=== PATIENT | female | born 1955 | race Caucasian/White ===

== ENCOUNTER 2019-04-15 11:30 | Outpatient (RCR) | payer OTHER, SELFPAY | END 2019-04-15 23:59 | disposition home or self-care (01) | LOC: ANHAUDIO 11:30 | PROVIDERS: PCP Internal Medicine; Visit Provider Internal Medicine | DX: Z46.1 Encounter for fitting and adjustment of hearing aid (principal) | CPT/HCPCS: 99199; V5241; V5256 ==

== ENCOUNTER 2020-03-10 13:40 | Outpatient (RCR) | payer OTHER, SELFPAY | END 2020-03-10 23:59 | disposition home or self-care (01) | LOC: ANHAUDIO 13:40 | PROVIDERS: PCP Internal Medicine; Referring Provider Internal Medicine; Visit Provider Internal Medicine | DX: Z46.1 Encounter for fitting and adjustment of hearing aid (principal) | CPT/HCPCS: 99199; V5014 ==

== ENCOUNTER 2021-04-13 12:47 | Outpatient (RCR) | payer OTHER, SELFPAY | END 2021-04-13 23:59 | disposition home or self-care (01) | LOC: ANHAUDIO 12:47 | PROVIDERS: PCP Family Medicine; Visit Provider Family Medicine | DX: Z46.1 Encounter for fitting and adjustment of hearing aid (principal) | CPT/HCPCS: 92592 ==

== ENCOUNTER 2022-04-04 12:55 | Outpatient (CLI) | payer OTHER, SELFPAY ==
--- NOTE | ~2022-04-04 | XR_ITS ---
EXAMINATION: XR chest 2V 04/04/2022 13:13 INDICATION: Weight loss. COPD exacerbation. PROCEDURE: PA and lateral views of the chest COMPARISON: 04/24/2017 FINDINGS: The lungs are clear. The cardiomediastinal silhouette is within normal limits. There are no pleural effusions. There is no pneumothorax suspected. The lungs are hyperinflated which is cons istent with, but not diagnostic of chronic obstructive pulmonary disease. There is an intramedullary inge in the left humerus with proximal interlocking screws. IMPRESSION: 1: NO ACUTE CARDIOPULMONARY DISEASE. Reviewed, dictated and finalized at location L. [employer]ICIAN
== END 2022-04-04 12:56 | disposition home or self-care (01) ==
LOC: ANHIMG 13:00
PROVIDERS: PCP Family Medicine
DX: J44.1 Chronic obstructive pulmonary disease with (acute) exacerbation (principal)
CPT/HCPCS: 71046

== ENCOUNTER 2022-05-30 13:00 | Outpatient (RCR) | payer OTHER, SELFPAY | END 2022-05-30 23:59 | disposition home or self-care (01) | LOC: ANHAUDIO 13:00 | PROVIDERS: PCP Family Medicine; Visit Provider Family Medicine | DX: Z46.1 Encounter for fitting and adjustment of hearing aid (principal) | CPT/HCPCS: 99199; V5014 ==

== ENCOUNTER 2022-08-06 14:08 | Outpatient (CLI) | payer OTHER, SELFPAY ==
[2022-08-06 16:55] LABS: Appearance Urine Clear (Clear); Bacteria Urine None Seen /hpf; Bilirubin Urine Negative (Negative); Blood Urine Negative (Negative); Color Urine Yellow (Yellow); Glucose Urine UA Negative (Negative); Ketones Urine Negative (Negative); Leukocyte Esterase Ur Trace LEU/UL (NEGATIVE); Nitrate Urine Negative (Negative); Non Pathogenic Casts 0-2; Protein Urine Trace mg/dL (Negative); RBC Urine 0-2 /hpf (0-2); Specific Grav Ur 1.023 (1.001-1.035); Squamous Epithelial Cell Urine Moderate /hpf (Few); pH Urine 6.5 (5.0-9.0)
[2022-08-06 16:56] LABS: Add Urine Microscopic? YES
[2022-08-06 17:01] LABS: Basophils Absolute Auto 0.1 K/mm3 (0.0-0.1); Basophils Percent Auto 1.4 % (0.2-1.2); Eosinophils Absolute Auto 0.1 K/mm3 (0-0.3); Eosinophils Percent Auto 1.3 % (0-4.4); Hematocrit 40.8 % (37.0-47.0); Hemoglobin 12.9 g/dL (12.0-15.0); Immature Granulocyte Absolute 0.01 K/mm3 (0.00-0.031); Immature Granulocyte Percent A 0.1 % (0-0.5); Lymphocytes Absolute Auto 1.84 K/mm3 (0.9-3.2); Mean Corpuscular HGB Conc 31.6 g/dl (32-36); Mean Corpuscular Hemoglobin 30.1 pg (26-34); Mean Corpuscular Volume 95.1 fl (80-100); Mean Platelet Volume 11.7 fl (7.4-10.4); Monocytes Absolute Auto 0.5 K/mm3 (0.1-0.6); Monocytes Percent Auto 5.7 % (2.6-8.5); Neutrophils Absolute Auto 6.2 K/mm3 (1.3-6.7); Neutrophils Percent Auto 70.5 % (45.5-73.1); Platelet Count Result 260 k/mm3 (150-375); Red Blood Count 4.29 M/mm3 (4.2-5.4); Red Cell Distribution Width 13.3 % (11.5-14.5); White Blood Count 8.8 K/mm3 (4.5-10.0)
[2022-08-06 17:37] LABS: Erythrocyte Sedimentation Rate 13 mm/hr (0-20)
[2022-08-06 18:03] LABS: Alanine Aminotransferase 15 U/L (6-35); Albumin Level 4.1 g/dL (3.5-5.1); Alkaline Phosphatase 64 U/L (38-126); Anion Gap 4 mmol/L (8-16); Aspartate Amino Transferase 29 U/L (14-36); Bilirubin,Total 0.5 mg/dL (0.2-1.3); Blood Urea Nitrogen 19 mg/dL (7-17); CRP < 0.5 mg/dL (<1.0); Calcium 9.5 mg/dL (8.4-10.2); Carbon Dioxide 26 mmol/L (22-30); Chloride 113 mmol/L (98-107); Estimated Glomerular Filt Rate 56; Glucose 99 mg/dL (65-110); Sodium 143 mmol/L (137-145)
[2022-08-06 18:45] LABS: Free T4 Free Thyroxine 1.09 ng/mL (0.78-2.19)
[2022-08-06 19:03] LABS: Folic Acid 8.9 ng/mL (2.76->20)
[2022-08-06 20:27] LABS: Hemoglobin A1C 5.3 % (<5.7)
== END 2022-08-06 14:09 | disposition home or self-care (01) ==
LOC: ANHGOSHLAB 14:09
PROVIDERS: PCP Internal Medicine; Visit Provider Internal Medicine
DX: J44.9 Chronic obstructive pulmonary disease, unspecified (principal); R63.4 Abnormal weight loss; R73.9 Hyperglycemia, unspecified; R91.1 Solitary pulmonary nodule; Z72.0 Tobacco use
CPT/HCPCS: 36415; 80053; 81001; 82607; 82746; 83036; 84439; 84443; 85025; 85652; 86140

== ENCOUNTER 2023-07-04 11:13 | Emergency (ER) | payer OTHER, SELFPAY ==
--- NOTE | ~2023-07-04 | XR_ITS ---
Clinical Indication: Cough PA and lateral views of the chest: Comparison: 04/04/2022 Findings: The lungs are clear, without evidence of focal consolidation or pleural effusion. Probable COPD. Cardiomediastinal silhouette is within normal limits. Bones and soft tissues are unremarkable. Impression: Clear lungs. Probable COPD. Reviewed, dictated and finalized at location . Impression: Clear lungs. Probable COPD.
[2023-07-04 11:25] VITALS: BP 127/63; PULSE 74; RESP 18; TEMP 36.7; O2SAT 96
--- NOTE | 2023-07-04 11:26 | ED.URI ---
HPI - URI/Sore Throat General Chief Complaint: Upper Respiratory Infection Stated Complaint: Cough/Shortness of Breath Time Seen by Provider: 07/04/23 11:34 Source: patient Mode of arrival: ambulatory Limitations: no limitations History of Present Illness HPI Narrative: 68 y/o female accompanied by dtr presented for c/o productive cough x5 days. Endorses hearing gurgling sounds with breathing, fatigue at onset, temp up to 99. Sates O2 sat 90% 3 days ago, but has improved. Cough is productive of green sputum. Taking Robitussin, mucinex, cetirizine, and albuterol nebs. Denies cp, palpitations, n/v/d/f/c. Smokes 1ppd x40 years. Does not take inhalers. Related Data Home Medications Medication Instructions Recorded Confirmed cetirizine 10 mg tablet 10 mg PO DAILY PRN 06/15/20 03/24/23 gabapentin 100 mg capsule 100 mg PO TID PRN 08/06/22 03/24/23 ibuprofen 600 mg tablet 600 mg PO TID 08/06/22 02/26/23 pantoprazole 40 mg tablet,delayed 40 mg PO QAM 08/06/22 03/24/23 release albuterol sulfate 90 mcg/actuation inhalation 12/17/22 03/24/23 aerosol inhaler budesonide-formoterol HFA 160 inhalation 12/17/22 03/24/23 mcg-4.5 mcg/actuation aerosol inhaler (Symbicort) fluticasone furoate 200 inhalation 07/04/23 mcg-vilanterol 25 mcg/dose inhalation powder (Breo Ellipta) hydrocodone bitartrate 40 mg mg PO 07/04/23 tablet,crush resist,extended rel. 24hr (Hysingla ER) Allergies Allergy/AdvReac Type Severity Reaction Status Date / Time MAK Inhibitors Allergy Unknown unknown Verified 07/04/23 11:17 codeine Allergy Unknown unknown Verified 07/04/23 11:17 penicillin G Allergy Unknown unknown Verified 07/04/23 11:17 Penicillins Allergy Unknown unknown Verified 07/04/23 11:17 morphine AdvReac Intermediate Hallucinati Verified 07/04/23 11:17 ng steroid Allergy Severe Swelling Uncoded 07/04/23 11:17 DIURETICS AdvReac Unknown SWELLING Uncoded 07/04/23 11:17 AT [facility]/ PAIN AT [facility] Review of Systems Review of Systems: CONSTITUTIONAL: Denies fever, chills, or sweats. EYES: Denies visual changes, redness, or discharge. ENT: Denies rhinorrhea, congestion, sore throat, or otalgia. CARDIOVASCULAR: Denies chest pain, palpitations, or edema. RESPIRATORY: Reports cough, sob, wheezing. GASTROINTESTINAL: Denies abdominal pain, nausea, vomiting, or diarrhea. SKIN: Denies rash, itching, or wounds. MUSCULOSKELETAL: Denies myalgia. NEUROLOGIC: Denies headache, numbness, tingling, or weakness. All systems reviewed & are unremarkable except as noted in HPI and below PMFSH Past Medical History Medical History Allergies Anxiety Arthritis Broken hip Broken shoulder Broken wrist COPD (chronic obstructive pulmonary disease) GERD (gastroesophageal reflux disease) Hyperlipemia Left patella fracture Left tibial fracture Migraine Surgical History Surgical History H/O discectomy H/O tubal ligation History of tympanoplasty of left ear Family History Family History Mother Family history of heart disease in male family member before age 55, Onset Age: 60 Sibling Family history of heart disease in male family member before age 55, Onset Age: 52 Other Cerebrovascular accident Diabetes mellitus Family history of arthritis Family history of cardiovascular disease Family history of malignant neoplasm Hypertension Social History Social History Social History: Caffeine- tea Smoking packs per day: 1 Smoking cigarettes per day: 20.0 Years smoked: 50 Smoking pack-years: 50.00 Smoking status: Current every day smoker Second hand tobacco smoke exposure: Yes Alcohol intake: former Substance use: never Substance use type: does not use
== END 2023-07-04 12:07 | disposition home or self-care (01) ==
PROVIDERS: Emergency Provider Nurse Practitioner Family; PCP Internal Medicine
DX: J40 Bronchitis, not specified as acute or chronic (principal); F17.210 Nicotine dependence, cigarettes, uncomplicated; M19.90 Unspecified osteoarthritis, unspecified site; J44.9 Chronic obstructive pulmonary disease, unspecified; K21.9 Gastro-esophageal reflux disease without esophagitis; E78.5 Hyperlipidemia, unspecified
CPT/HCPCS: 71046; 99213; G0463